=== PATIENT | female | born 1960 | race Asian ===

== ENCOUNTER 2024-07-30 11:25 | Day surgery (SDC) | payer BC, SELFPAY ==
[2024-07-27 14:44] VITALS: BMI 33.0
[2024-07-30] VITALS (11 sets, daily range): BP systolic 133–184; BP diastolic 75–99; PULSE 68–85; RESP 14–18; TEMP 36.6–36.7; O2SAT 92–99; BMI 34.7
[2024-07-30] MEDS: DiphenhydrAMINE INJ 50 MG/ML VIAL 25 MG IV (13:44)
[2024-07-30] MEDS: fentaNYL CIT INJ 50 mCg/ML AMP 2ML (ASD USE ONLY) IV (13:44)
[2024-07-30] MEDS: ONDANSETRON INJ 2 MG/ML INJ 2 ML 4 MG IV (13:46)
[2024-07-30] MEDS: MIDAZOLAM INJ 1 MG/ML VIAL 2 ML (ASD USE ONLY) 2 MG IV (13:46)
[2024-07-30] MEDS: SODIUM CHLORIDE 0.9% 250 ML 250 ML 125 ML IV (14:06)
== END 2024-07-30 15:10 | disposition home or self-care (01) ==
PROVIDERS: PCP Family Medicine; Referring Provider Specialist; Visit Provider Specialist
PROC: 0DBE8ZX Excision of Large Intestine, Via Natural or Artificial Opening Endoscopic, Diagnostic (ICD-10-PCS; CPT 45380; principal; 2024-07-30 12:30)
PROC: (CPT 43239; 2024-07-30 12:30)
DX: K64.8 Other hemorrhoids (principal); K57.31 Diverticulosis of large intestine without perforation or abscess with bleeding; R19.7 Diarrhea, unspecified
CPT/HCPCS: 46221; A4649; J1200; J2250; J2405; J3010; J7050

== ENCOUNTER → 2024-09-10 | Outpatient (CLI) | payer BC, SELFPAY ==
--- NOTE | 2024-09-10 14:00 | XR_ITS ---
Examination: Abdomen sonogram, complete Date and time of exam: September 10, 2024 at 1404 hours INDICATIONS: Generalized abdominal pain beginning a few weeks ago. Technique: Multiple real-time grayscale transabdominal sonographic images of the abdomen have been obtained. Findings: 4 mm gallbladder polyp No gallstones Gallbladder wall 0.3 cm Common bile duct 0.3 cm Pancreatic head 2.6 cm Proximal aorta visualized not enlarged Liver 15.1 cm fatty infiltration probable focal fatty sparing 2.3 x 1.5 x 2.1 cm Normal hepatopedal portal venous oh Patent IVC Right kidney 10.2 x 5.3 x 6.5 cm cortex 1.8 cm Left kidney 11.8 x 5.4 x 5.2 cm cortex 2.3 cm Mild right renal parenchymal scar formation Spleen 6.8 cm IMPRESSION: 4 mm gallbladder polyp Negative for cholelithiasis, negative for cholecystitis Fatty liver, probable focal fatty sparing right lobe of the liver adjacent to the gallbladder 23 x 15 x 21 mm, recommend 6 month follow-up hepatic sonography to document stability of this appearance
== END | disposition home or self-care (01) ==
PROVIDERS: PCP Family Medicine; Referring Provider Specialist; Visit Provider Specialist
DX: K82.4 Cholesterolosis of gallbladder (principal); K76.0 Fatty (change of) liver, not elsewhere classified
CPT/HCPCS: 76700

== ENCOUNTER 2025-01-18 09:11 | Outpatient (RCR) | payer BC, SELFPAY ==
--- NOTE | 2025-01-18 09:32 | XR_ITS ---
Examination: DEEPA, hepatobiliary radioisotope scan Gallbladder ejection fraction study. Date and time of exam: January 18, 2025 0939 hours INDICATIONS: Epigastric pain post meals 5 months Technique: 5.7 mCi of 99M Hepatolite administered. Serial imaging then obtained from immediate through 60 minutes. 1.6 mcg selective catheter Kinevac administered for gallbladder ejection fraction study. Findings: Radioisotope activity within the liver is reasonably homogenous. Gallbladder, common bile duct small bowel activity noted Impression: Gallbladder activity Normal gallbladder ejection fraction, 91%
== END 2025-01-23 23:59 | disposition home or self-care (01) ==
LOC: SNUC 09:11
PROVIDERS: PCP Family Medicine; Referring Provider Specialist; Visit Provider Specialist
DX: R10.13 Epigastric pain (principal); R11.0 Nausea; R10.32 Left lower quadrant pain
CPT/HCPCS: 78227; A9537; J2805